=== PATIENT | male | born 1995 | race Caucasian/White ===

== ENCOUNTER 2020-02-07 07:59 | Emergency (ER) | payer OTHER ==
[2020-02-07] MEDS ORDERED: Ondansetron ODT 4 MG TAB ONE (08:26)
== END 2020-02-07 08:27 | disposition home or self-care (01) ==
LOC: ERS 07:59
DX: R11.0 Nausea (principal); F43.10 Post-traumatic stress disorder, unspecified; F41.9 Anxiety disorder, unspecified; F17.210 Nicotine dependence, cigarettes, uncomplicated
CPT/HCPCS: 99281; Q0162